=== PATIENT | female | born 1995 | race Caucasian/White ===

== ENCOUNTER → 2019-09-03 10:17 | Outpatient (CLI) | payer BC, SELFPAY ==
--- NOTE | ~2019-09-03 | US_ITS ---
EXAMINATION: US OB follow up DATE: 09/03/2019 11:19 INDICATION: Estimated size greater than expected for estimated gestational age. Assess gr owth and amniotic fluid index at the junction of the second and third trimester of . TECHNIQUE: Real-time ultrasound of the pelvis was performed. The interpreting radiologist was not pre sent for the study. COMPARISON: None. FINDINGS: There is a single living fetus in vertex presentation. The placenta is posterior and not low-lying. heart rate is 135 beats per minute (bpm). The amniotic fluid index is 19.1 cm, which is normal (5th%-95%: 9.5-22.6 cm at 27 weeks estimated gestational age). The following biometric data were obtained: BPD: 7.2 cm -> weeks 290 days Head circumference: 26.4 cm -> 28 weeks 5 days Abdominal circumference: 24.6 cm -> 28 weeks 6 days Femur length: 5.2 cm -> 27 weeks 5 days These measurements are concordant. Head circumference to abdominal circumference ratio: 1.07 (normal range 1.00-1.21). Estimated weight: 1230 g (+/-) 185 g. or 2 lbs. 11 oz. (+/-) 7 oz. IMPRESSION: 1. Single living fetus in vertex presentation with heart rate of 136 bpm. 2. Gestational age by ultrasound of 28 weeks 4 day(s) +/- 2 week(s) 0 day(s) with ultrasound estimate d date of delivery (TATYANA) of 11/22/2019. Estimated weight is 83rd percentile by Hadlock criteria w hen 12/01/2019 is used as the TATYANA. Please correlate with clinical information or earlier ultrasounds f or most accurate TATYANA. Reviewed, dictated and finalized at location A. N RESOURCES OPERATIONS DIRECTOR IMPRESSION: 1. Single living fetus in vertex presentation with heart rate of 136 bpm. 2. Gestational age by ultrasound of 28 weeks 4 day(s) +/- 2 week(s) 0 day(s) wi th ultrasound estimated date of delivery (TATYANA) of 11/22/2019. Estimated sharad ght is 83rd percentile by Hadlock criteria when 12/01/2019 is used as the TATYANA. P lease correlate with clinical information or earlier ultrasounds for most accur ate TATYANA.
== END ==
PROVIDERS: Visit Provider Obstetrics & Gynecology Gynecology
DX: Z36.84 Encounter for antenatal screening for fetal lung maturity (principal); Z36.89 Encounter for other specified antenatal screening
CPT/HCPCS: 76816

== ENCOUNTER → 2019-10-17 09:58 | Outpatient (CLI) | payer BC, SELFPAY ==
--- NOTE | ~2019-10-17 | US_ITS ---
OB follow up DATE: 10/17/2019 10:33 INDICATION: Gestational diabetes. Evaluate growth, estimated weight TECHNIQUE: Real-time imaging and Doppler analysis COMPARISON: 09/03/2019 obstetrical ultrasound FINDINGS: Live [place] intrauterine gestation, fetus in longitudinal lie, vertex presentation. The placenta is posterior. No evidence of placenta previa. heart rate of 137 bpm. Amniotic fluid index measures 14.9 cm, within normal range (5th percentile: 8.3 cm; 95th percentile: 24.5 cm). Biparietal diameter 9.21 cm; 37 weeks 3 days estimated gestational age Head circumference 32.43 cm; 36 weeks 5 days Abdominal circumference 32.71 cm; 36 weeks 4 days Femur length 6.51 cm; 33 weeks 4 days Composite age by Hadlock formula is 36 weeks 1 day +/- 2 weeks 4 days; TATYANA would be 11/13/2019 based u caryl the current biometrics, compared to 12/01/2019 by LMP. Estimated weight is 2807 +/- 421 g. Femur length/BPD 70.66, slightly below normal range of 71.0-87.0 Head circumference/abdominal circumference 0.99, within normal range of 0.9 to-1.08 Femur length/abdominal circumference 19.89, slightly below normal range of 20.00-24.00 Femur length/head circumference 20.06, slightly below normal range of 20.20-22.17. IMPRESSION: Normal amniotic fluid index of 14.9 cm Estimated weight: 2807 +/- 421 g Reviewed, dictated and finalized at Location A. Reviewed, dictated and finalized at location B.
== END ==
PROVIDERS: Visit Provider Obstetrics & Gynecology
DX: O36.63X0 Maternal care for excessive fetal growth, third trimester, not applicable or unspecified (principal)
CPT/HCPCS: 76816

== ENCOUNTER 2019-11-24 02:18 | Inpatient (IN) | payer BC, SELFPAY ==
[2019-11-24] VITALS (138 sets, daily range): BP systolic 94–159; BP diastolic 31–110; PULSE 71–131; RESP 16–18; TEMP 36.2–37.2; O2SAT 96–100; BMI 43.9
--- NOTE | 2019-11-24 02:18 | LDADM ---
This patient, Taty Kuo, was admitted to Labor/Delivery/Recovery 102 on 11/24/19 at 02:18. Plans for labor, pain management and were discussed with patient. Patient/family oriented to hospital policies and general routines including ID bracelet, bed and alarms, visiting hours, pain management, procedures, bathroom and other care routines, personal items, smoking policy, room service/diet and guest tray routines, infant security routines, and visiting hours. Patient/Family are encouraged to report perceived risks to care and to ask questions if they do not understand what they are told or what they should do. See OBIX for further documentation.
[2019-11-24 02:53] LABS: Basophils Percent Auto 0.2 % (0.2-1.2); Eosinophils Absolute Auto 0.1 K/mm3 (0-0.3); Eosinophils Percent Auto 0.7 % (0-4.4); Hematocrit 33.7 % (37.0-47.0); Hemoglobin 11.2 g/dL (12.0-15.0); Immature Granulocyte Absolute 0.08 K/mm3 (0.00-0.031); Immature Granulocyte Percent A 0.8 % (0-0.5); Lymphocytes Absolute Auto 2.66 K/mm3 (0.9-3.2); Lymphocytes Percent Auto 27.2 % (18.3-44.2); Mean Corpuscular HGB Conc 33.2 g/dl (32-36); Mean Corpuscular Hemoglobin 28.1 pg (26-34); Mean Corpuscular Volume 84.5 fl (80-100); Monocytes Absolute Auto 0.6 K/mm3 (0.1-0.6); Monocytes Percent Auto 6.1 % (2.6-8.5); Neutrophils Absolute Auto 6.3 K/mm3 (1.3-6.7); Platelet Count Result 171 k/mm3 (150-375); Red Blood Count 3.99 M/mm3 (4.2-5.4); Red Cell Distribution Width 15.9 % (11.5-14.5); White Blood Count 9.8 K/mm3 (4.5-10.0)
[2019-11-24 03:06] LABS: Potassium 3.9 mmol/L (3.4-5.0)
[2019-11-24 03:18] LABS: Alanine Aminotransferase 11 U/L (4-35); Albumin Level 3.8 g/dL (3.5-5.1); Alkaline Phosphatase 133 U/L (38-126); Aspartate Amino Transferase 20 U/L (14-36); Bilirubin,Total 0.3 mg/dL (0.2-1.3); Blood Urea Nitrogen 7 mg/dL (7-17); Carbon Dioxide 19 mmol/L (22-30); Chloride 108 mmol/L (98-107); Estimated CRCL calculation 188 ml/min; Estimated Glomerular Filt Rate > 60; Glucose 96 mg/dL (65-105); Sodium 134 mmol/L (137-145)
[2019-11-24] MEDS: LACTATED RINGERS 1,000 ML 125 ML IV CONT ×2 (03:58→04:53)
--- NOTE | 2019-11-24 04:31 | WPDANESEPP ---
Anes - Eval Pre Procedure Procedure: labor epidural Date/Time: 11/24/19 04:31 Surgeon: dorinda Pre Op Diagnosis: Labor Patient Data Age: 24 Gender: F Height: 1.52 m Weight: 102 kg Last Vital Signs Temp 36.6 C 11/24/19 02:40 Pulse 94 11/24/19 04:31 BP 146/82 H 11/24/19 04:31 Allergies Allergy/AdvReac Type Severity Reaction Status Date / Time No Known Allergies Allergy Verified 11/03/19 15:29 Home Medications Medication Instructions Recorded Confirmed Type PNV cmb#95-ferrous fumarate-FA 1 tablet PO DAILY 11/03/19 11/03/19 History [] ergocalciferol (vitamin D2) 1,250 mcg PO 2XW 11/03/19 11/03/19 History [Vitamin D2] ferrous sulfate 325 mg PO DAILY 11/03/19 11/03/19 History insulin regular human [Novolin R 18 unit SUBCUT HS 11/03/19 11/24/19 History Regular U-100 Insuln] Laboratory Tests 11/24/19 11/24/19 11/24/19 02:45 02:45 02:45 WBC 9.8 K/mm3 K/mm3 (4.5-10.0) RBC 3.99 M/mm3 L M/mm3 (4.2-5.4) Hgb 11.2 g/dL L g/dL (12.0-15.0) Hct 33.7 % L % (37.0-47.0) MCV 84.5 fl fl (80-100) MCH 28.1 pg pg (26-34) MCHC 33.2 g/dl g/dl (32-36) RDW 15.9 % H % (11.5-14.5) Plt Count 171 k/mm3 k/mm3 (150-375) MPV 11.0 fl H fl (7.4-10.4) Immature Gran % (Auto) 0.8 % H % (0-0.5) Neut % (Auto) 65.0 % % (45.5-73.1) Lymph % (Auto) 27.2 % % (18.3-44.2) [place] % (Auto) 6.1 % % (2.6-8.5) Eos % (Auto) 0.7 % % (0-4.4) Baso % (Auto) 0.2 % % (0.2-1.2) Lymph # (Auto) 2.66 K/mm3 K/mm3 (0.9-3.2) [place] # (Auto) 0.6 K/mm3 K/mm3 (0.1-0.6) Eos # (Auto) 0.1 K/mm3 K/mm3 (0-0.3) Baso # (Auto) 0.0 K/mm3 K/mm3 (0.0-0.1) Abs Immat Gran (auto) 0.08 K/mm3 H K/mm3 (0.00-0.031) Absolute Neuts (auto) 6.3 K/mm3 K/mm3 (1.3-6.7) Absolute Nucleated RBC 0.0 K/mm3 K/mm3 (0.0-0.012) Nucleated RBC % 0.0 % % (0.0-0.2) Sodium Potassium Chloride Carbon Dioxide BUN Creatinine Estim Creat Clear Calc Estimated GFR Glucose Calcium Total Bilirubin AST ALT Alkaline Phosphatase Total Protein Albumin RPR Pending Blood Type O Positive Antibody Screen Negative 11/24/19 02:45 WBC RBC Hgb Hct MCV MCH MCHC RDW Plt Count MPV Immature Gran % (Auto) Neut % (Auto) Lymph % (Auto) [place] % (Auto) Eos % (Auto) Baso % (Auto) Lymph # (Auto) [place] # (Auto) Eos # (Auto) Baso # (Auto) Abs Immat Gran (auto) Absolute Neuts (auto) Absolute Nucleated RBC Nucleated RBC % Sodium 134 mmol/L L mmol/L (137-145) Potassium 3.9 mmol/L mmol/L (3.4-5.0) Chloride 108 mmol/L H mmol/L (98-107) Carbon Dioxide 19 mmol/L L mmol/L (22-30) BUN 7 mg/dL mg/dL (7-17) Creatinine 0.40 mg/dL L mg/dL (0.7-1.0) Estim Creat Clear Calc 188 ml/min ml/min Estimated GFR > 60 (59 - ) Glucose 96 mg/dL mg/dL (65-105) Calcium 9.0 mg/dL mg/dL (8.4-10.2) Total Bilirubin 0.3 mg/dL mg/dL (0.2-1.3) AST 20 U/L U/L (14-36) ALT 11 U/L U/L (4-35) Alkaline Phosphatase 133 U/L H U/L (38-126) Total Protein 7.0 g/dL g/dL (6.3-8.2) Albumin 3.8 g/dL g/dL (3.5-5.1) RPR Blood Type Antibody Screen Patient hx anesthesia problems: none Family hx anesthesia problems: none [facility] Family History Family History (Updated 11/03/19 @ 15:34 by Daniel Lang RN) Sibling Bipolar disorder Mother Hypertension Diabetes mellitus Fat
[2019-11-24 05:16] LABS: Glucose Point of Care 107 (65-105)
[2019-11-24] MEDS: OXYTOCIN 30 UNITS/NS 500 ML 30 UNITS/500 ML BAG IV CONT (05:45)
[2019-11-24 07:08] LABS: Rapid Plasma Reagin Non-Reactive (NonReactive)
[2019-11-24 07:26] LABS: Glucose Point of Care 97 (65-105)
--- NOTE | 2019-11-24 07:28 | WPDOBADMIT ---
Obstetrics - Admit Note Admission Note: record reviewed. No pertinent additions to the history and/or any subsequent changes in the physical findings that are not consistent with the expected course of the were found. Additions to the history and/or subsequent changes in the physical findings follow. Here in labor. Cervix 8/90/-2 AROM with clear fluid. FHTs reactive. Comfortable with epidural.
--- NOTE | 2019-11-24 12:57 | PM.OBPNVD ---
OB - PN: Subj Subjective Date/time seen: 11/24/19 12:57 OB - PN: Obj Data Labs CBC & Chem 7: 11/24/19 02:45 11/24/19 02:45 Labs: Laboratory Results - last 24 hr 11/24/19 11/24/19 11/24/19 02:45 02:45 02:45 WBC 9.8 RBC 3.99 L Hgb 11.2 L Hct 33.7 L MCV 84.5 MCH 28.1 MCHC 33.2 RDW 15.9 H Plt Count 171 MPV 11.0 H Immature Gran % (Auto) 0.8 H Neut % (Auto) 65.0 Lymph % (Auto) 27.2 [place] % (Auto) 6.1 Eos % (Auto) 0.7 Baso % (Auto) 0.2 Lymph # (Auto) 2.66 [place] # (Auto) 0.6 Eos # (Auto) 0.1 Baso # (Auto) 0.0 Abs Immat Gran (auto) 0.08 H Absolute Neuts (auto) 6.3 Absolute Nucleated RBC 0.0 Nucleated RBC % 0.0 Sodium Potassium Chloride Carbon Dioxide BUN Creatinine Estim Creat Clear Calc Estimated GFR Glucose POC Capillary Glucose Calcium Total Bilirubin AST ALT Alkaline Phosphatase Total Protein Albumin RPR Non-reactive Blood Type O Positive Antibody Screen Negative 11/24/19 11/24/19 11/24/19 02:45 05:12 07:21 WBC RBC Hgb Hct MCV MCH MCHC RDW Plt Count MPV Immature Gran % (Auto) Neut % (Auto) Lymph % (Auto) [place] % (Auto) Eos % (Auto) Baso % (Auto) Lymph # (Auto) [place] # (Auto) Eos # (Auto) Baso # (Auto) Abs Immat Gran (auto) Absolute Neuts (auto) Absolute Nucleated RBC Nucleated RBC % Sodium 134 L Potassium 3.9 Chloride 108 H Carbon Dioxide 19 L BUN 7 Creatinine 0.40 L Estim Creat Clear Calc 188 Estimated GFR > 60 Glucose 96 POC Capillary Glucose 107 97 Calcium 9.0 Total Bilirubin 0.3 AST 20 ALT 11 Alkaline Phosphatase 133 H Total Protein 7.0 Albumin 3.8 RPR Blood Type Antibody Screen OB - PN A/P Assessment and Plan (1) 38 weeks gestation of : Code(s): Z3A.38 - 38 weeks gestation of Status: Acute Assessment and Plan: failure of vertex to descend 2 hours of pushing moved from -2 to -1 discussed with patient continued pushing vs csection and patient chooses to proceed with csection Time Spent With Patient Time: Total time spent is greater than 50% in coordination of care (as documented) at patient's floor/unit and/or counseling patient:
--- NOTE | 2019-11-24 13:00 | PM.IMHP ---
H&P: HPI History of Present Illness Chief complaint: Labor Narrative: Taty Kuo is a 24 year old female G1 at 38 3/7 wks here in labor. Patient progressed to complete and now pushing x 2 hours with minimal descent. Still at -1 station so too high for forceps. [facility] Surgical History Surgical History (Updated 11/24/19 @ 13:03 by Winsome Alvarez MD) S/P laparoscopic procedure RSO due to cyst in 2014 Family History Family History (Updated 11/03/19 @ 15:34 by Daniel Lang RN) Sibling Bipolar disorder Mother Hypertension Diabetes mellitus Father Diabetes mellitus Social History Social History Smoking status: Never smoker Substance use: never Gender identity (if verbalized by the patient): Female Spiritual care concerns: No Meds Home Medications and Allergies Home Medications Medication Instructions Recorded Confirmed Type PNV cmb#95-ferrous fumarate-FA 1 tablet PO DAILY 11/03/19 11/03/19 History [] ergocalciferol (vitamin D2) 1,250 mcg PO 2XW 11/03/19 11/03/19 History [Vitamin D2] ferrous sulfate 325 mg PO DAILY 11/03/19 11/03/19 History insulin regular human [Novolin R 18 unit SUBCUT HS 11/03/19 11/24/19 History Regular U-100 Insuln] Allergies Allergy/AdvReac Type Severity Reaction Status Date / Time No Known Allergies Allergy Verified 11/03/19 15:29 Vital Signs Vital Signs - 24 hr 11/24/19 02:34 11/24/19 02:40 11/24/19 03:01 Temperature 98 F Pulse Rate 95 101 H Blood Pressure 156/94 H 156/68 H Pulse Oximetry 11/24/19 03:16 11/24/19 03:31 11/24/19 03:46 Temperature Pulse Rate 91 92 96 Blood Pressure 143/92 H 138/81 127/77 Pulse Oximetry 11/24/19 04:00 11/24/19 04:15 11/24/19 04:31 Temperature Pulse Rate 90 84 94 Blood Pressure 148/83 H 151/101 H 146/82 H Pulse Oximetry 11/24/19 04:35 11/24/19 04:38 11/24/19 04:40 Temperature Pulse Rate 107 H Blood Pressure 159/106 H Pulse Oximetry 99 99 11/24/19 04:43 11/24/19 04:45 11/24/19 04:46 Temperature Pulse Rate 86 98 96 Blood Pressure 156/95 H 154/98 H 157/97 H Pulse Oximetry 99 11/24/19 04:50 11/24/19 04:51 11/24/19 04:53 Temperature Pulse Rate 91 99 Blood Pressure 158/88 H 158/94 H Pulse Oximetry 99 11/24/19 04:55 11/24/19 04:57 11/24/19 04:58 Temperature Pulse Rate 99 93 101 H Blood Pressure 150/93 H 145/82 H 141/94 H Pulse Oximetry 99 11/24/19 05:00 11/24/19 05:03 11/24/19 05:05 Temperature Pulse Rate 94 94 Blood Pressure 145/79 H 141/91 H Pulse Oximetry 98 100 11/24/19 05:06 11/24/19 05:09 11/24/19 05:10 Temperature Pulse Rate 104 H 92 Blood Pressure 139/87 146/83 H Pulse Oximetry 100 11/24/19 05:13 11/24/19 05:15 11/24/19 05:20 Temperature Pulse Rate 104 H 103 H Blood Pressure 146/50 H 145/102 H Pulse Oximetry 100 100 11/24/19 05:25 11/24/19 05:30 11/24/19 05:35 Temperature Pulse Rate 108 H Blood Pressure 147/98 H Pulse Oximetry 99 99 99 11/24/19 05:40 11/24/19 05:45 11/24/19 05:46 Temperature Pulse Rate 95 Blood Pressure 121/53 L Pulse Oximetry 100 100 11/24/19 05:50 11/24/19 05:55 11/24/19 06:00 Temperature Pulse Rate Blood Pressure Pulse Oximetry 100 100 100 11/24/19 06:01 11/24/19 06:05 11/24/19 06:10 Temperature Pulse Rate 90 Blood Pressure 111/57 L Pulse Oximetry 100 100 11/24/19 06:15 11/24/19 06:20 11/24/19 06:25 Temperature Pulse Rate 92 Blood Pressure 113/64 Pulse Oximetry 100 100 99 11/24/19 06:30 11/24/19 06:31 11/24/19 06:35 Temperature Pulse Rate 94 Blood Pressure 120/66 Pulse Oximetry 100 100 11/24/19 06:40 11/24/19 06:43 11/24/19 06:46 Temperature Pulse Rate 98 Blood Pressure 120/66 Pulse Oximetry 100 100 11/24/19 06:48 11/24/19 07:00 11/24/19 07:16 Temperature Pulse Rate 121 H 111 H Blood Pressure 123/74 113/74 Pulse Oximetry
--- NOTE | 2019-11-24 15:50 | PM.OBDSVD ---
DS: Diagnosis Admitting Diagnosis Admitting Diagnosis: 38 weeks gestation of Discharge Diagnosis (1) Failure of descent in labor, delivered, current hospitalization: Code(s): O62.2 - Other uterine inertia Status: Acute (2) GDM, class A2: Code(s): O24.419 - Gestational diabetes mellitus in , unspecified control Status: Acute (3) 38 weeks gestation of : Code(s): Z3A.38 - 38 weeks gestation of Status: Acute (4) delivery delivered: Code(s): O82 - Encounter for delivery without indication Status: Acute OB - DS: Summary OB Procedures : NST and Ultrasound OB Procedures Intrapartum: OB Procedures: : None Peripartum Data Infant Delivery Method: Section Procedures: Procedures Operation Date: 11/24/19 13:30 Actual Procedures Side Surgeon p Section Winsome Alvarez MD complications: none Status at Discharge Functional status at discharge: independent ambulation Overall status at discharge: patient is progressing back to baseline Time Spent with Patient Time attestation: Total time spent providing and/or coordinating discharge services: DS: Data Data Completed and Pending Pending studies at discharge: Pending at discharge 11/24/19 15:30 Surgical [PTH] Routine Labs on day of discharge: Labs from last 24 hours 11/24/19 11/24/19 11/24/19 07:21 05:12 02:45 WBC RBC Hgb Hct MCV MCH MCHC RDW Plt Count MPV Immature Gran % (Auto) Neut % (Auto) Lymph % (Auto) [place] % (Auto) Eos % (Auto) Baso % (Auto) Lymph # (Auto) [place] # (Auto) Eos # (Auto) Baso # (Auto) Abs Immat Gran (auto) Absolute Neuts (auto) Absolute Nucleated RBC Nucleated RBC % Sodium 134 L Potassium 3.9 Chloride 108 H Carbon Dioxide 19 L BUN 7 Creatinine 0.40 L Estim Creat Clear Calc 188 Estimated GFR > 60 Glucose 96 POC Capillary Glucose 97 107 Calcium 9.0 Total Bilirubin 0.3 AST 20 ALT 11 Alkaline Phosphatase 133 H Total Protein 7.0 Albumin 3.8 RPR Blood Type Antibody Screen 11/24/19 11/24/19 11/24/19 02:45 02:45 02:45 WBC 9.8 RBC 3.99 L Hgb 11.2 L Hct 33.7 L MCV 84.5 MCH 28.1 MCHC 33.2 RDW 15.9 H Plt Count 171 MPV 11.0 H Immature Gran % (Auto) 0.8 H Neut % (Auto) 65.0 Lymph % (Auto) 27.2 [place] % (Auto) 6.1 Eos % (Auto) 0.7 Baso % (Auto) 0.2 Lymph # (Auto) 2.66 [place] # (Auto) 0.6 Eos # (Auto) 0.1 Baso # (Auto) 0.0 Abs Immat Gran (auto) 0.08 H Absolute Neuts (auto) 6.3 Absolute Nucleated RBC 0.0 Nucleated RBC % 0.0 Sodium Potassium Chloride Carbon Dioxide BUN Creatinine Estim Creat Clear Calc Estimated GFR Glucose POC Capillary Glucose Calcium Total Bilirubin AST ALT Alkaline Phosphatase Total Protein Albumin RPR Non-reactive Blood Type O Positive Antibody Screen Negative Discharge Plan Discharge Attending physician on discharge: Winsome Alvarez Discharging Clinician: Christian Morin Anticipated Discharge Date/Time: 11/27/19 15:51 Patient Disposition: Home, Self-Care Activity: may shower, may drive after 2 weeks and pelvic rest Diet: regular Wound Care Instructions: incision open to air Discharge Instructions: Education: Mom and Baby Guide Given to: Mother Follow-Up: Call your delivering provider's office for an appointment to be seen in: 1 Week Mom and baby should come to the [facility] for the follow-up appointment. Appointment Date/Time: November 28, 2019 at 9:00 am What to expect at your follow-up visit: Blood Pressure Check Physical Assessment Call [phone] if you are unable to keep your appointment time.
--- NOTE | 2019-11-24 15:52 | PM.OP ---
Procedure Note - Brief Procedure Note - Brief Date of procedure: 11/24/19 Pre-op diagnosis: Labor failure to descend; GDMA2; IUP 38 3/7 wks Post-op diagnosis: same Anesthesia: epidural Surgeon: Winsome Alvarez MD Estimated blood loss (mL): 460 Drains: Yes (clemente) Packing: No Pathology: yes Complications: No immediate complications Condition: stable Disposition: floor Findings: female 9#5oz 9/9 normal appearing tubes, ovaries, and uterus
--- NOTE | 2019-11-24 16:35 | PC.NURSE ---
PT arrived on unit via stretcher accompanied by spouse and and taken to room 292. PT moved from stretcher to bed via maxi air without difficulty. PT oriented to room and surrounding area. PT introductions made and plan of care discussed per post op c section, pain management, breast feeding, daily care activities. PT verbalized understanding of such care. Welcome packet reviewed and discussed.
[2019-11-24] MEDS: OXYTOCIN 30 UNITS/NS 500 ML 30 UNITS/500 ML BAG 125 UNITS IV CONT (16:45)
[2019-11-24] MEDS: ONDANSETRON INJ 4 MG/2 ML VIAL IV PUSH (18:11)
[2019-11-24] MEDS: KETOROLAC 30 MG/ML VIAL (*BKC) IV PUSH (18:11)
[2019-11-24] MEDS: DEXTROSE 5%/0.45% SOD CHL 1,000 ML 125 ML IV CONT (20:30)
--- NOTE | 2019-11-24 22:34 | OP_ITS ---
DATE OF PROCEDURE: 11/24/2019 PREOPERATIVE DIAGNOSIS: Intrauterine at 38 and 3/7 weeks; gestational diabetes, insulin requiring; failure to descend. POSTOPERATIVE DIAGNOSIS: Intrauterine at 38 and 3/7 weeks; gestational diabetes, insulin requiring; failure to descend. PROCEDURE: Primary low-transverse section. ANESTHESIA: Epidural. FINDINGS: Female , 9 pounds 5 ounces, with Apgars of 9 and 9. Normal-appearing tubes, ovaries, and uterus. ESTIMATED BLOOD LOSS: 460 cc. PATHOLOGY: Placenta. DESCRIPTION OF PROCEDURE: The patient was taken to the operating room, placed under epidural anesthesia in the dorsal supine position with a leftward tilt. Once anesthesia was deemed adequate, she was prepped and draped in usual sterile fashion. A Pfannenstiel skin incision was made with a scalpel and carried down to the underlying layer of fascia. Fascia was nicked in the midline and extended laterally using De Guzman scissors. Bleeding vessels in the subcutaneous tissues were grasped and cauterized. The fascial edges were grasped with Ochsners and tented. The fascia was dissected off using sharp and blunt dissection. The rectus muscles were in the midline. The peritoneum was tented, entered with Metzenbaums. The incision was extended with blunt traction. The Wilmer O retractor was placed. The bladder flap was grasped with a Pean and entered using Metzenbaum. The incision was extended laterally. The bladder flap was created digitally. The bladder blade was not utilized due to the Wilmer O retractor. The lower uterine segment was incised in a transverse fashion with a scalpel and extended laterally using blunt traction. The 's head was brought up into the incision from the deep pelvis. The was then delivered while the multimedia production assistant applied fundal pressure. The remainder of the infant was fully delivered. The cord was clamped and cut. The handed to the waiting OB nurse. The placenta was removed using manual traction. The uterus was cleared of all clots and debris. The uterine incision was closed using 0 Monocryl in a running locked fashion. Same suture was used to imbricate. Good hemostasis was noted. The cul-de-sac and gutters were irrigated. The incision was again inspected and noted to be hemostatic. The fascia was closed using 0 Vicryl in a running fashion. Subcutaneous tissues were irrigated and made hemostatic using Bovie cautery. Skin was closed using 4-0 Vicryl in a subcuticular fashion. Dermaflex was placed over the incision. Sponge, instrument, needle counts were correct per the OR staff. The patient did receive Ancef prior to incision. D I MT: Kirk
[2019-11-25 03:45] VITALS: BP 122/71; PULSE 79; RESP 16; TEMP 36.6
[2019-11-25] MEDS: IBUPROFEN 600 MG TABLET PO ×3 (05:22→17:19)
[2019-11-25 06:04] LABS: Basophils Percent Auto 0.3 % (0.2-1.2); Eosinophils Percent Auto 0.3 % (0-4.4); Hematocrit 29.8 % (37.0-47.0); Hemoglobin 9.7 g/dL (12.0-15.0); Immature Granulocyte Absolute 0.06 K/mm3 (0.00-0.031); Immature Granulocyte Percent A 0.5 % (0-0.5); Lymphocytes Absolute Auto 2.24 K/mm3 (0.9-3.2); Lymphocytes Percent Auto 19.4 % (18.3-44.2); Mean Corpuscular HGB Conc 32.6 g/dl (32-36); Mean Corpuscular Hemoglobin 27.8 pg (26-34); Mean Corpuscular Volume 85.4 fl (80-100); Mean Platelet Volume 11.7 fl (7.4-10.4); Monocytes Absolute Auto 0.8 K/mm3 (0.1-0.6); Monocytes Percent Auto 6.7 % (2.6-8.5); Neutrophils Absolute Auto 8.4 K/mm3 (1.3-6.7); Neutrophils Percent Auto 72.8 % (45.5-73.1); Platelet Count Result 161 k/mm3 (150-375); Red Blood Count 3.49 M/mm3 (4.2-5.4); Red Cell Distribution Width 15.9 % (11.5-14.5); White Blood Count 11.5 K/mm3 (4.5-10.0)
--- NOTE | 2019-11-25 07:00 | PC.NURSE ---
PT introductions made and plan of care discussed per post op c section, pain management, breast feeding, daily care activities. PT verbalized understanding of such care.
[2019-11-25 09:10] VITALS: BP 117/72; PULSE 89; RESP 18; TEMP 37.2; O2SAT 99
[2019-11-25] MEDS: MULTIVIT/MIN/PREN/FOL AC/IRON TABLET 1 TAB PO (10:50)
[2019-11-25] MEDS: DOCUSATE SODIUM 100 MG CAPSULE PO ×2 (10:50→17:20)
[2019-11-25] MEDS: POLYSACCHARIDE IRON COMPLEX 150 MG CAPSULE PO ×2 (10:50→17:20)
[2019-11-25] MEDS: SIMETHICONE 80 MG TAB.CHEW PO ×2 (10:51→17:18)
[2019-11-25 11:00] VITALS: PULSE 89; RESP 18; O2SAT 99
--- NOTE | 2019-11-25 11:06 | PM.OBPNVD ---
OB - PN: Subj Subjective Date/time seen: 11/25/19 11:06 Patient comments: no complaints and pain well controlled baby status: doing well OB - PN: Obj Data Labs CBC & Chem 7: 11/25/19 05:33 11/24/19 02:45 Labs: Laboratory Results - last 24 hr 11/25/19 05:33 WBC 11.5 H RBC 3.49 L Hgb 9.7 L Hct 29.8 L MCV 85.4 MCH 27.8 MCHC 32.6 RDW 15.9 H Plt Count 161 MPV 11.7 H Immature Gran % (Auto) 0.5 Neut % (Auto) 72.8 Lymph % (Auto) 19.4 [place] % (Auto) 6.7 Eos % (Auto) 0.3 Baso % (Auto) 0.3 Lymph # (Auto) 2.24 [place] # (Auto) 0.8 H Eos # (Auto) 0.0 Baso # (Auto) 0.0 Abs Immat Gran (auto) 0.06 H Absolute Neuts (auto) 8.4 H Absolute Nucleated RBC 0.0 Nucleated RBC % 0.0 OB - PN A/P Assessment and Plan (1) delivery delivered: Code(s): O82 - Encounter for delivery without indication Status: Acute Assessment and Plan: continue with postop care. Time Spent With Patient Time: Total time spent is greater than 50% in coordination of care (as documented) at patient's floor/unit and/or counseling patient:
[2019-11-25 11:30] VITALS: BP 107/64; PULSE 89; RESP 18; TEMP 36.6; O2SAT 96
--- NOTE | 2019-11-25 11:31 | WPDANLDPN2 ---
Anes-Prog Note L&D Date/Time: 11/25/19 11:31 Comfortable throughout: section Neuraxial method: epidural Epidural/Spinal procedure site: clean & non-tender Neuro status: Neuro function grossly intact. Cardiovascular status: normal Respiratory status: normal Airway patency: baseline Mental status: baseline Post-Op hydration status: normal Vital Signs: Last Vital Signs Temp 37.2 C 11/25/19 09:10 Pulse 89 11/25/19 11:00 Resp 18 11/25/19 11:00 BP 117/72 11/25/19 09:10 Pulse Ox 99 11/25/19 11:00 I/O: Intake & Output 11/24/19 11/25/19 11/25/19 23:59 07:59 15:59 Intake Total 1100 1400 Output Total 698 600 Balance 402 800 Post-procedural complaints: none Patient feedback: Patient satisfied with anesthetic care.
--- NOTE | 2019-11-25 11:31 | WPDANLDNPN2 ---
Anes-Prog Note L&D-Neuraxial Date/Time: 11/25/19 11:31 Neuraxial medications: epidural PF morphine Opiod-related complaints: none Patient feedback: Patient satisfied with post-operative pain management.
--- NOTE | 2019-11-25 14:30 | PC.NURSE ---
Consulted with patient, mother reports infant is latching without discomfort, mother states is sleepy at feedings and is on and off during. Reviewed sleepiness is normal and stimulation to wake and during feedings may assist with keeping awake and nursing effectively for increased intake and maintaining deep latch. Reviewed feeding cues, frequencies, duration of feedings, feeding elimination flow sheet, and signs of adequate intake. Demonstrated stimulation techniques to wake for feeding. Assisted with to breast. Reviewed positioning/alignment in cross cradle, holding breast in U hold and guided asymmetrical latch on. Several attempts before was able to latch correctly. Infant nursed eagerly, with steady draws and frequent swallowing noted. Reviewed signs of a correct latch, effective nursing and suck swallow ratio. was able to maintain latch without discomfort to mother. Nipple care reviewed. Instructed mother to call out for RN assistance if she is unable to latch for feeding or she has discomfort with nursing. Instructed feeding should be initiated three hours from start of last feeding or if feeding cues are noted before. Mother voiced understanding of information shared.
[2019-11-25 18:55] VITALS: BP 147/93; PULSE 101; RESP 20; TEMP 36.8
[2019-11-26] MEDS: SIMETHICONE 80 MG TAB.CHEW PO (01:50)
[2019-11-26] MEDS: IBUPROFEN 600 MG TABLET PO ×2 (01:50→10:04)
[2019-11-26 08:50] VITALS: BP 150/88; PULSE 92; RESP 18; TEMP 36.6
[2019-11-26 10:00] VITALS: BP 150/94; PULSE 110
[2019-11-26] MEDS: MULTIVIT/MIN/PREN/FOL AC/IRON TABLET 1 TAB PO (10:03)
[2019-11-26] MEDS: DOCUSATE SODIUM 100 MG CAPSULE PO (10:04)
[2019-11-26] MEDS: POLYSACCHARIDE IRON COMPLEX 150 MG CAPSULE PO (10:04)
[2019-11-26 14:50] VITALS: BP 137/95; PULSE 103
--- NOTE | 2019-11-26 17:17 | PC.NURSE ---
1200 Pt viewed the discharge DVD on her phone; she states she also looked through her mother-baby guide.
[2019-11-28 08:44] VITALS: BP 143/87; PULSE 87; RESP 18; TEMP 36.5
== END 2019-11-26 16:37 | disposition home or self-care (01) | DRG 788 ==
LOC: ANHLDR 15:52 → ANHOB2 11-25 10:53 → ANHLDR 11-29 10:37 → ANHOB2 11-29 10:37
PROVIDERS: Obstetrics & Gynecology Gynecology; Admitting Provider Obstetrics & Gynecology; Visit Provider Obstetrics & Gynecology
PROC: 10D00Z1 Extraction of Products of Conception, Low, Open Approach (ICD-10-PCS; CPT 59514; principal; 2019-11-24 13:30)
DX: O24.429 Gestational diabetes mellitus in childbirth, unspecified control (principal); Z37.0 Single live birth; Z3A.38 38 weeks gestation of pregnancy; O32.4XX0 Maternal care for high head at term, not applicable or unspecified; O99.72 Diseases of the skin and subcutaneous tissue complicating childbirth; L30.9 Dermatitis, unspecified
CPT/HCPCS: 36415; 80053; 85025; 86592; 86850; 86900; 86901; 88307; A9270; J0131; J1885; J2405; J2590; J2795; J7120

== ENCOUNTER 2024-09-16 15:44 | Outpatient (CLI) | payer OTHER, SELFPAY | END 2024-09-16 15:45 | disposition home or self-care (01) | LOC: MICIMG 15:46 | PROVIDERS: PCP Obstetrics & Gynecology Gynecology; Visit Provider Obstetrics & Gynecology Gynecology | DX: O26.851 Spotting complicating pregnancy, first trimester (principal); Z3A.00 Weeks of gestation of pregnancy not specified | CPT/HCPCS: 76817 ==

== ENCOUNTER 2024-09-28 12:49 | Outpatient (CLI) | payer OTHER, SELFPAY ==
--- NOTE | ~2024-09-28 | US_ITS ---
EXAMINATION: US OB transvaginal DATE: 09/28/2024 16:52 CDT INDICATION: Spotting COMPARISON: 09/16/2024 TECHNIQUE: Real-time transabdominal obstetric ultrasound. FINDINGS: 2 para 1 Estimated date of delivery by last menstrual period is 05/13/2025 The uterus measures 9.1 x 4.4 x 5.0 cm. A gestational sac is identified within the uterus. A pole is identified, with a crown-rump length that measures 1.4 cm, corresponding to an approx imate gestational age of 7 weeks and 5 days. cardiac activity is identified at a rate of 147 bpm. Two irregular foci of decreased echogenicity are identified within the fundus of the uterus, without close proximity to the gestational sac. These measure 12 x 8 x 11 mm and 8 x 8 x 12 mm, respectively. Attention on follow-up is recommended. The right ovary is surgically absent. The left ovary measures 4.4 x 2.8 x 3.5 cm. A corpus luteal cyst is identified within the left ovary measuring 2.4 x 2.1 x 2.1 cm Estimated date of delivery by ultrasound is 05/12/2025 IMPRESSION: Single intrauterine gestation with an approximate gestational age of 7 weeks and 5 days, with cardiac activity identified. Two irregular foci of decreased echogenicity are identified within the fundus of the uterus, without significantly close proximity to the gestational sac, as detailed above. Reviewed, dictated and finalized at location A. IMPRESSION: Single intrauterine gestation with an approximate gestational age of 7 weeks an d 5 days, with cardiac activity identified. Two irregular foci of decreased echogenicity are identified within the fundus o f the uterus, without significantly close proximity to the gestational sac, as detailed above.
== END 2024-09-28 12:50 | disposition home or self-care (01) ==
LOC: MICIMG 12:50
PROVIDERS: PCP Obstetrics & Gynecology Gynecology; Visit Provider Obstetrics & Gynecology Gynecology
DX: O26.851 Spotting complicating pregnancy, first trimester (principal); Z3A.00 Weeks of gestation of pregnancy not specified
CPT/HCPCS: 76817

== ENCOUNTER 2024-10-03 11:47 | Outpatient (CLI) | payer OTHER, SELFPAY ==
--- NOTE | ~2024-10-03 | US_ITS ---
EXAMINATION: US OB <= 14 weeks fetus DATE: 10/03/2024 12:05 INDICATION: Spotting during first trimester . TECHNIQUE: Real-time pelvic ultrasound utilizing both a transvaginal and transabdominal probe was pe rformed. The interpreting radiologist was not present for the study. COMPARISON: 09/28/2024 FINDINGS: The uterus measures 8.6 x 4.0 x 5.3 cm. The endometrial complex measures 5-6 mm. The previously seen intrauterine gestational sac is no longer visualized consistent with interval continues . No evident fluid, echogenic material or increased vascular flow within the endometrial complex to sugge st retained products of conception. The right ovary is not visualized and has reportedly been surgically removed The left ovary measures 3.5 x 2.5 x 2.6 cm. There is no free fluid in the pelvis. IMPRESSION: 1. 5-6 mm thick and normal-appearing endometrial complex with the previously seen intrauterine gestat ional sac no longer visualized consistent with interval spontaneous . No evident retained pro ducts of conception. Reviewed, dictated and finalized at location A. IMPRESSION: 1. 5-6 mm thick and normal-appearing endometrial complex with the previously se en intrauterine gestational sac no longer visualized consistent with interval s pontaneous . No evident retained products of conception.
== END 2024-10-03 11:48 | disposition home or self-care (01) ==
LOC: MICIMG 11:47
PROVIDERS: PCP Obstetrics & Gynecology Gynecology; Visit Provider Obstetrics & Gynecology Gynecology
DX: O26.851 Spotting complicating pregnancy, first trimester (principal); Z3A.00 Weeks of gestation of pregnancy not specified
CPT/HCPCS: 76801

== ENCOUNTER 2025-05-16 13:22 | Outpatient (CLI) | payer OTHER, SELFPAY ==
--- NOTE | ~2025-05-16 | US_ITS ---
EXAMINATION: US OB transvaginal, 05/16/2025 13:23 CDT HISTORY: inconclusive viability Comparison: None Technique: Varghese-scale sonographic images were obtained Findings: Uterus anteverted 8.6 x 4.9 x 5.9 cm, intrauterine gestational sac is identified with pole corresponding to 6 weeks and 2 days, yolk sac also identified, heart rate 121 Right ovary surgically absent. Left endometrium 4.6 x 3.1 x 3.5 cm, cystic lesion 3.1 x 2.8 cm, no adnexal mass, normal flow. IMPRESSION: Single live intrauterine detailed above. Probable functional left ovarian cyst. Follow-up suggested to assess resolution Reviewed, dictated and finalized at location P. IMPRESSION: Single live intrauterine detailed above. Probable functio nal left ovarian cyst. Follow-up suggested to assess resolution
== END 2025-05-16 13:23 | disposition home or self-care (01) ==
LOC: MICIMG 13:22
PROVIDERS: PCP Obstetrics & Gynecology Gynecology; Visit Provider Obstetrics & Gynecology Gynecology
DX: O36.80X0 Pregnancy with inconclusive fetal viability, not applicable or unspecified (principal); Z3A.00 Weeks of gestation of pregnancy not specified
CPT/HCPCS: 76817